=== PATIENT | female | born 1980 | race African-American/Black ===

== ENCOUNTER 2021-03-29 08:52 | Emergency (ER) | payer MEDICAID, OTHER ==
[~2021-03-29] VITALS: Ht 160 cm; Wt 89.0 kg
[2021-03-29] MEDS ORDERED: PHEN-815 MT (09:39)
[2021-03-29] MEDS ORDERED: CEPH500C2 MT (09:39)
[2021-03-29 09:43] VITALS: BP 149/89
[2021-03-29 10:53] LABS: CLARITY URINE CLOUDY (CLEAR); COLOR URINE YELLOW (YELLOW); KETONES URINE NEGATIVE (NEGATIVE); LEUKOCYTE ESTERASE URINE 3+ (NEGATIVE); NITRITE URINE NEGATIVE (NEGATIVE); OCCULT BLOOD URINE 2+ (NEGATIVE); PH URINE 6.5 (4.5-8.0); PROTEIN URINE 1+ (NEGATIVE); SPECIFIC GRAVITY URINE 1.022 (1.005-1.030); UROBILINOGEN URINE 0.2 E.U./dL (0.2-1.0)
== END 2021-03-29 09:45 | disposition home or self-care (01) ==
LOC: ER 09:30
DX: N30.00 Acute cystitis without hematuria (principal); I10 Essential (primary) hypertension; Z98.51 Tubal ligation status
CPT/HCPCS: 81003; 81025; 99283

== ENCOUNTER 2022-01-01 06:27 | Emergency (ER) | payer MEDICAID, OTHER ==
[~2022-01-01] VITALS: Ht 160 cm; Wt 75.0 kg
[~2022-01-01 06:27] MED LIST: CEPH500C2 MT; PHEN-815 MT
[2022-01-01 06:39] VITALS: BP 137/90
[2022-01-01] MEDS ORDERED: TETANUS, DIPHTHERIA, PERTUSSIS VAC/PF 0.5ML (>10YR OLD) IM ONE (07:00)
[2022-01-01] MEDS ORDERED: CEFAZOLIN SODIUM 1000MG/VIAL IM ONE (07:45)
[2022-01-01] MEDS ORDERED: CEPH500T MT (08:01)
[2022-01-01] MEDS ORDERED: TRAM50TA3 MT (08:19)
[2022-01-01] MEDS ORDERED: IBUP-2029 MT (08:19)
== END 2022-01-01 08:38 | disposition home or self-care (01) ==
LOC: ER 06:27
DX: S61.216A Laceration without foreign body of right little finger without damage to nail, initial encounter (principal); Z98.51 Tubal ligation status; W45.8XXA Other foreign body or object entering through skin, initial encounter; Y93.89 Activity, other specified; Y92.89 Other specified places as the place of occurrence of the external cause; Y99.8 Other external cause status
CPT/HCPCS: 29130; 73140; 96372; 99283; A4217; J0690

== ENCOUNTER 2022-07-19 08:03 | Emergency (ER) | payer MEDICAID, OTHER ==
[~2022-07-19] VITALS: Ht 160 cm; Wt 64.0 kg
[~2022-07-19 08:03] MED LIST changes: +CEPH500T MT; +IBUP-2029 MT; +TRAM50TA3 MT
[2022-07-19 08:08] VITALS: BP 186/112
[2022-07-19] MEDS ORDERED: KETOROLAC 15MG/ML VIAL IM ONE (08:45)
[2022-07-19] MEDS ORDERED: AMOX1TAB16 MT (08:53)
== END 2022-07-19 09:03 | disposition home or self-care (01) ==
LOC: ER 08:07
DX: K02.9 Dental caries, unspecified (principal); Z98.51 Tubal ligation status
CPT/HCPCS: 96372; 99283; J1885